=== PATIENT | female | born 1950 | race Caucasian/White ===

== ENCOUNTER → 2016-10-20 | Outpatient (CLI) | payer MEDICARE, BC ==
--- NOTE | 2016-10-23 13:29 | XCELERA REPORT ---
[address] [address] Transthoracic Echocardiogram Report Name: LITA BONDS Age: 65 yrs Gender: Female : 1950 Patient Status: Outpatient Patient Location: Study Date: 10/20/2016 10:48 AM Height: 67 in Weight: 195 lb BSA: 2.0 m2 Procedure: A complete two-dimensional transthoracic echocardiogram was performed (2D, M-mode, spectral and color flow Doppler). The study was technically difficult with many images being suboptimal in quality. Reason For Study: ABN EKG Ordering Physician: PARAM BATISTA Performed By: Alba Ruelas Interpretation Summary The left ventricular ejection fraction is normal. There is borderline concentric left ventricular hypertrophy. Doppler measurements suggest pseudonormalized left ventricular relaxation, which is associated with grade II/IV or mild to moderate diastolic dysfunction The left ventricle is grossly normal size. Wall motion cannot be accurately commented on, but no definite regional wall motion abnormalities noted. The right ventricular systolic function is normal. The right atrium is normal. The left atrial size is normal. There is no mitral valve stenosis. There is a trace to mild amount of mitral regurgitation There is no aortic valve stenosis No aortic regurgitation is present. There is a trace or physiologic amount of tricuspid regurgitation Tricuspid regurgitation jet envelope not well defined to measure RV systolic pressure accurately. There is no pericardial effusion. MMode/2D Measurements \T\ Calculations RVDd: 2.2 cm LVIDd: 5.1 cmFS: 39.7 % Ao root diam: 3.1 cm IVSd: 0.98 cm LVIDs: 3.1 cmEDV(Teich): 126.2 ml LVPWd: 1.0 cmESV(Teich): 37.9 ml Ao root area: 7.6 cm2 EF(Teich): 70.0 % LA dimension: 3.1 cm LVOT diam: 2.0 cm LVOT area: 3.3 cm2 Doppler Measurements \T\ Calculations MV E max shantelle: MV P1/2t max shantelle: Ao V2 max: LV V1 max P.4 cm/sec 111.3 cm/sec 143.9 cm/sec 7.5 mmHg MV A max shantelle: MV P1/2t: 70.6 msec Ao max PG: LV V1 max: 110.0 cm/sec MVA(P1/2t): 3.1 cm2 8.3 mmHg 137.3 cm/sec MV E/A: 1.0 MV dec slope: THALIA(V,D): 3.1 cm2 461.6 cm/sec2 MV dec time: 0.23 sec PA V2 max: TR max shantelle: 74.0 cm/sec 232.8 cm/sec PA max PG: TR max P.7 mmHg 2.2 mmHg Left Ventricle The left ventricle is grossly normal size. There is borderline concentric left ventricular hypertrophy. The left ventricular ejection fraction is normal. Doppler measurements suggest pseudonormalized left ventricular relaxation, which is associated with grade II/IV or mild to moderate diastolic dysfunction. Wall motion cannot be accurately commented on, but no definite regional wall motion abnormalities noted. Right Ventricle The right ventricle is grossly normal size. There is normal right ventricular wall thickness. The right ventricular systolic function is normal. Atria The right atrium is normal. The left atrial size is normal. Interarterial septum not well visualized and not well dopplered. Cannot comment on ASD/PFO presence. Mitral Valve The mitral valve is grossly normal. There is no mitral valve stenosis. There is a trace to mild amount of mitral regurgitation. Aortic Valve The aortic valve is grossly normal. There is no aortic valve stenosis. No aortic regurgitation is present. Tricuspid Valve The tricuspid valve is not well visualized, but is grossly normal. There is no tricuspid stenosis. There is a trace or physiologic amount of tricuspid regurgitation. Tricuspid regurgitation jet envelope not well defined to measure RV systolic pressure accurately. Pulmonic Valve The pulmonic valve is not well visualized. Great Vessels The aortic root is not well visualized but is probably normal size. The inferior vena cava appeared normal and decreased > 50% with respiration (RAP 5-10 mmHg). Effusions There is no pericardial effusion. : PARAM BATISTA > Yue Olea
== END ==
LOC: SP 10:47
PROVIDERS: ATTEND Internal Medicine
DX: R94.31 Abnormal electrocardiogram [ECG] [EKG] (principal)
CPT/HCPCS: 93306